=== PATIENT | female | born 1985 | race Hispanic/Latino ===

== ENCOUNTER 2022-05-31 01:48 | Emergency (ER) | payer MEDICAID ==
[~2022-05-31] VITALS: Ht 162.6 cm; Wt 145.1 kg
[2022-05-31 02:30] LABS: APPEARANCE,URINE TURBID (CLEAR); BILIRUBIN,URINE NEGATIVE (NEGATIVE); COLOR,URINE YELLOW (YELLOW); GLUCOSE, URINE (UA) NEGATIVE (NEGATIVE); KETONES,URINE NEGATIVE (NEGATIVE); LEUKOCYTE ESTERASE ,URINE 500 Leu/uL (NEGATIVE); NITRATE,URINE 2+ (NEGATIVE); OCCULT BLOOD,URINE SMALL (NEGATIVE); PROTEIN,URINE 70 mg/dL (NEGATIVE); UROBILINOGEN,URINE 0.2 mg/dL (0.2-1.0)
[2022-05-31] MEDS ORDERED: 0.9%NACL 1000ML 1,000 ML IV SCH (02:30)
[2022-05-31] MEDS ORDERED: IBUPROFEN 600 MG TABLET PO ONE (02:30)
[2022-05-31] MEDS ORDERED: ACETAMINOPHEN 500 MG TABLET PO ONE (02:30)
[2022-05-31 02:31] LABS: HCG,QUALITATIVE URINE NEGATIVE (NEGATIVE)
[2022-05-31 02:34] LABS: BACTERIA,URINE FEW /HPF (None Seen); MUCUS,URINE RARE LPF (None Seen); SQUAMOUS EPITHELIAL CELL,UR FEW /HPF (0-2); WBC,URINE TNTC /HPF (0-1)
[2022-05-31 02:37] LABS: BASOPHILS % (AUTO) 0.3 % (0.0-5.0); EOSINOPHILS % (AUTO) 0.8 % (0.0-8.0); HEMATOCRIT 35.2 % (36-48); MEAN CORPUSCULAR HEMOGLOBIN 24.2 pg (27.0-33.0); MEAN CORPUSCULAR HGB CONC 31.8 g/dL (32.0-36.0); MONOCYTES % (AUTO) 0.7 % (3.0-13.0); NEUTROPHILS % (AUTO) 78.7 % (40.0-77.0); PLATELET COUNT (AUTO) 344 K/uL (130-400); RED BLOOD CELL COUNT(AUTO) 4.63 MIL/uL (4.00-5.50); RED CELL DISTRIBUTION WIDTH 15.5 % (11.0-15.5); WHITE BLOOD COUNT (AUTO) 12.5 K/uL (4.8-10.8)
[2022-05-31 02:45] LABS: CREATININE 0.9 mg/dL (0.5-1.5); POTASSIUM 3.8 mmol/L (3.5-5.1)
[2022-05-31] MEDS ORDERED: CEFTRIAXONE 1G VIAL ONE (03:29)
[2022-05-31] MEDS ORDERED: CEFTRIAXONE 1G VIAL IVP ONE (03:30)
[2022-05-31 04:28] VITALS: BP 122/58
[2022-05-31] MEDS ORDERED: PHENAZOPYRIDINE HCL 200 MG TABLET PO STA (04:37)
[2022-05-31] MEDS ORDERED: CEPH500B PO (04:44)
[2022-05-31] MEDS ORDERED: PHEN-847 PO (04:44)
== END 2022-05-31 04:59 | disposition home or self-care (01) ==
LOC: EDH 01:48
DX: N39.0 Urinary tract infection, site not specified (principal); I10 Essential (primary) hypertension; E11.9 Type 2 diabetes mellitus without complications; Z20.822 Contact with and (suspected) exposure to COVID-19
CPT/HCPCS: 99283; 96374; 96361; 87635; 80053; 83690; 85025; 87077; 87088; 87186; 87804 ×2; 81001; 81025; 36415; C9803; J7030; J0696

== ENCOUNTER 2023-12-22 23:42 | Emergency (ER) | payer MEDICAID, OTHER ==
[~2023-12-22] VITALS: Ht 162.6 cm; Wt 113.4 kg
[~2023-12-22 23:42] MED LIST: CEPH500B PO; PHEN-847 PO
[2023-12-22] MEDS ORDERED: IOHEXOL-350 75 ML VIAL IV ONE (23:43)
[2023-12-23 00:15] LABS: APPEARANCE,URINE CLOUDY (CLEAR); BILIRUBIN,URINE NEGATIVE (NEGATIVE); COLOR,URINE YELLOW (YELLOW); GLUCOSE, URINE (UA) NEGATIVE (NEGATIVE); KETONES,URINE NEGATIVE (NEGATIVE); LEUKOCYTE ESTERASE ,URINE 75 Leu/uL (NEGATIVE); NITRATE,URINE NEGATIVE (NEGATIVE); OCCULT BLOOD,URINE NEGATIVE (NEGATIVE); PH,URINE 5.5 (5.0-8.0); PROTEIN,URINE 20 mg/dL (NEGATIVE); UROBILINOGEN,URINE 0.2 mg/dL (0.2-1.0)
[2023-12-23 00:18] LABS: ADD UA MICROSCOPIC YES
[2023-12-23 00:26] LABS: MUCUS,URINE FEW LPF (None Seen); SQUAMOUS EPITHELIAL CELL,UR MANY /HPF (0-2)
[2023-12-23] MEDS: ondanSETRON 4MG INJ IVP ONE (00:45)
[2023-12-23] MEDS: morPHINE 2 MG SYG IVP ONE (00:45)
[2023-12-23 00:46] LABS: BASOPHILS # (AUTO) 0.03 K/uL (0.00-0.20); BASOPHILS % (AUTO) 0.3 % (0.0-5.0); EOSINOPHILS # (AUTO) 0.16 K/uL (0.00-0.70); EOSINOPHILS % (AUTO) 1.7 % (0.0-8.0); HEMATOCRIT 39.5 % (36-48); IMMATURE GRANULOCYTE ABSOLUTE 0.03 K/uL (0-1); LYMPHOCYTES # (AUTO) 3.4 K/uL (1.0-4.8); LYMPHOCYTES % (AUTO) 36.6 % (21.0-51.0); MEAN CORPUSCULAR HEMOGLOBIN 26.1 pg (27.0-33.0); MEAN CORPUSCULAR HGB CONC 31.9 g/dL (32.0-36.0); MONOCYTES # (AUTO) 0.6 K/uL (0.1-1.0); MONOCYTES % (AUTO) 6.3 % (3.0-13.0); NEUTROPHILS # (AUTO) 5.1 K/uL (1.8-7.7); NEUTROPHILS % (AUTO) 54.8 % (40.0-77.0); PLATELET COUNT (AUTO) 299 K/uL (130-400); RED BLOOD CELL COUNT(AUTO) 4.82 MIL/uL (4.00-5.50); RED CELL DISTRIBUTION WIDTH 13.9 % (11.0-15.5); WHITE BLOOD COUNT (AUTO) 9.3 K/uL (4.8-10.8)
[2023-12-23] MEDS: 0.9%NACL 1000ML 1,000 ML IV ONE (00:46)
--- NOTE | 2023-12-23 00:53 | ERN ---
ED Note History of Present Illness Stated Complaint: C/O LOWER ABD PAIN WITH PAIN AND BURNING WHEN VOID Chief Complaint: Painful Urination Time Seen by MD: 00:08 Dictation: PATIENT IS A 38-YEAR-OLD FEMALE COMING IN TODAY WITH MODERATE TO SEVERE LOWER ABDOMINAL PAIN WITH BURNING SENSATION WHEN SHE VOIDS FOR THE LAST 6-7 DAYS. NO FEVER NO CHILLS. SHE STATES SHE CALLED HER DOCTOR LAST WEEK AND TOLD HER SHE THOUGHT SHE HAD A URINARY TRACT INFECTION AND WAS PRESCRIBED NITROFURANTOIN, TOOK THE LAST DOSE YESTERDAY AND NO CHANGE IN PAIN. PATIENT NOTED TO BE UNABLE TO WALK UPRIGHT DUE TO SEVERE ABDOMINAL PAIN. NEGATIVE CVAT BILATERALLY. Allergies: Coded Allergies: No Known Drug Allergies (Unverified Allergy, Unknown, 05/31/22) Home Meds Active Scripts Acetaminophen with Codeine (Acetaminophen-Cod #3 Tablet) 300 Mg-30 Mg Tablet, 1 TAB PO Q4H PRN for MODERATE TO SEVERE PAIN, #15 TAB 0 Refills Prov:REBECCA TONY NP 12/23/23 Metoclopramide HCl (Reglan 10 mg Tab) 10 Mg Tablet, 10 MG PO ACHS for NAUSEA VOMITING, #60 TAB Prov:REBECCA TONY NP 12/23/23 Phenazopyridine HCl (Pyridium) 200 Mg Tab, 200 MG PO TIDPC for 3 Days, #9 TAB TAKE WITH FOOD TO PREVENT STOMACH UPSET. Prov:MATTY UNGER MD 05/31/22 Cephalexin Monohydrate (Keflex) 500 Mg Cap, 500 MG PO QID for 10 Days, #40 CAP Prov:MATTY UNGER MD 05/31/22 Past Medical History Past Medical History: No Pertinent History Surgical History: Unknown History: Not Applicable RN Note Reviewed/Agreed w/PFSH: Yes Review of System Dictation CONSTITUTIONAL: NEGATIVE EXCEPT FOR HPI HEAD/FACE: NEGATIVE EXCEPT FOR HPI EENT: NEGATIVE EXCEPT FOR HPI RESPIRATORY: NEGATIVE EXCEPT FOR HPI GASTROINTESTINAL/ABDOMINAL: NEGATIVE EXCEPT FOR HPI MODERATE TO SEVERE LOWER ABDOMINAL PAIN GENITOURINARY: NEGATIVE EXCEPT FOR HPI MUSCULOSKELETAL: NEGATIVE EXCEPT FOR HPI INTEGUMENTARY: NEGATIVE EXCEPT FOR HPI NEUROLOGICAL/PSYCH: NEGATIVE EXCEPT FOR HPI HEMATOLOGIC/LYMPHATIC: NEGATIVE EXCEPT FOR HPI ALL SYSTEMS NEGATIVE, EXCEPT NOTED ABOVE. 13 POINT REVIEW OF SYSTEMS ASSESSED AND ALL NEGATIVE EXCEPT FOR ABOVE. Initial Vital Sign VS Vital Signs Date Time Temp Pulse Resp B/P (MAP) Pulse Ox O2 Delivery O2 Flow Rate FiO2 10/24/24 23:45 97.9 84 16 153/91 97 Room Air 12/23/23 02:37 0 21 Physical Exam Dictation VITAL SIGNS REVIEWED GENERAL APPEARANCE: ALERT, ORIENTED X 3, N SEVERE ACUTE DISTRESS, WELL DEVELOPED, NOURISHED. OBESE HEAD AND FACE: NON-TRAUMATIC. EYES: PERRL, PINK CONJUNCTIVAS, EYELID NO TRAUMA, ANTERIOR CHAMBER WITH ARCUS SENILIS. EARS: PINNAS INTACT AND NO SIGNS OF TRAUMA OR ERYTHEMA EAR CANALS CLEAR AND NO DISCHARGE TM NO ERYTHEMA NOSE: NO DISCHARGE, NO BLEEDING. OROPHARYNX: MOUTH NORMAL, TONGUE PINK, PHARYNX CLEAR,NO ERYTHEMA, TONSILS NO EXUDATES, NO ABSCESSES NOTED, MUCOUS MEMBRANE MOIST NECK: SUPPLE, NON-TENDER, NO THYROMEGALY, NO MASSES, NO JVD, NO BRUITS BREAST:DEFERRED CHEST:NO TENDERNESS, NO CREPITUS, NO PARADOXICAL MOVEMENT, NO RETRACTIONS LUNGS:CLEAR, WELL-VENTILATED, SYMMETRIC, NO RALES, NO WHEEZING, NO RHONCHI, NO STRIDOR, GOOD BREATH SOUNDS BILATERALLY HEART: REGULAR RATE, REGULAR RHYTHM, NO MURMUR, NO GALLOPS VASCULAR: NO PERIPHERAL EDEMA, ABDOMEN: SOFT, POSITIVE BOWEL SOUNDS, NONDISTENDED, NO GUARDING, MODERATE DIFFUSE LOWER ABDOMINAL TENDERNESS BOTH QUADRANTS. NEGATIVE CVAT BILATERALLY RECTAL: DEFERRED GENITAL: DEFERRED NEUROLOGICAL: NORMAL SPEECH, MOTOR FUNCTION INTACT, SENSORY FUNCTION INTACT MUSCULOSKELETAL: NECK NONTENDER, FULL RANGE OF MOTION, BACK NONTENDER, FULL RANGE OF MOTION, EXTREMITIES: NONTENDER, FULL RANGE OF MOTION SKIN: COLOR PINK, DRY, NO TURGOR, NO RASH, NO LACERATIONS, NO ABRASIONS, NO CONTUSIONS. LYMPHATIC: DEFERRED Results (Laboratory/Radiology) Laboratory/Radiology Laboratory Tests Test 12/22/23 23:49 12/23/23 00:39 Urine Color YELLOW (YELLOW) Urine Appearance CLOUDY (CLEAR) H Urine pH 5.5 (5.0-8.0) Urine Specific [place] 1.032 (1.001-1.031) Urine Protein 20 mg/dL (NEGATIVE) H Urine Glucose (UA) NEGATIVE mg/dL (NEGATIVE) Urine Ketones NEGATIVE mg/dL (NEGATIVE) Urine Occult Blood NEGATIVE (NEGATIVE) Urine Nitrate NEGATIVE (NEGATIVE) Urine Bilirubin NEGATIVE mg/dL (NEGATIVE) Urine Urobilinogen 0.2 mg/dL (0.2-1.0) Urine Leukocyte Esterase 75 Melissa/uL (NEGATIVE) H Urine RBC 2-5 /HPF (0-1) H Urine WBC 2-5 /HPF (0-1) H Urine Squamous Epithelial Cells MANY /HPF (0-2) Urine Bacteria None /HPF (None Seen) White Blood Count 9.3 K/uL (4.8-10.8) Red Blood Count 4.82 MIL/uL (4.00-5.50) Hemoglobin 12.6 g/dL (12.0-16.0) Hematocrit 39.5 % (36-48) Mean Corpuscular Volume 82.0 fL (79-99) Mean Corpuscular Hemoglobin 26.1 pg (27.0-33.0) L Mean Corpuscular Hemoglobin Concent 31.9 g/dL (32.0-36.0) L Red Cell Distribution Width 13.9 % (11.0-15.5) Platelet Count 299 K/uL (130-400) Mean Platelet Volume 9.8 fL (7.5-10.5) Immature Granulocyte % (Auto) 0.3 % (0-1) Neutrophils (%) (Auto) 54.8 % (40.0-77.0) Lymphocytes (%) (Auto) 36.6 % (21.0-51.0) Monocytes (%) (Auto) 6.3 % (3.0-13.0) Eosinophils (%) (Auto) 1.7 % (0.0-8.0) Basophils (%) (Auto) 0.3 % (0.0-5.0) Neutrophils # (Auto) 5.1 K/uL (1.8-7.7) Lymphocytes # (Auto) 3.4 K/uL (1.0-4.8) Monocytes # (Auto) 0.6 K/uL (0.1-1.0) Eosinophils # (Auto) 0.16 K/uL (0.00-0.70) Basophils # (Auto) 0.03 K/uL (0.00-0.20) Absolute Immature Granulocyte (auto 0.03 K/uL (0-1) Nucleated Red Blood Cells 0.0 % (0.0-0.19) Sodium Level 138 mmol/L (136-145) Potassium Level 3.9 mmol/L (3.5-5.1) Chloride Level 102 mmol/L (101-111) Carbon Dioxide Level 31 mmol/L (21-32) Blood Urea Nitrogen 17 mg/dL (7-18) Creatinine 0.7 mg/dL (0.5-1.0) Glomerular Filtration Rate Calc 114 mL/min (>90) Random Glucose 106 mg/dL (70-105) H Total Calcium 9.0 mg/dL (8.5-10.1) Serum Test, Qualitative NEGATIVE (NEGATIVE) REASON: LEFT FLANK PAIN RADIATING TO LEFT UPPER QUADRANT ORD CT ABDOMEN/PELVIS W/CONTRAST HISTORY: Abdominal pain COMPARISON: None TECHNIQUE: Multiple sequential axial images of the abdomen and pelvis were obtained from the dome of the diaphragm through symphysis pubis. Patient was given 75 cc of Omnipaque through intravenous route. Oral contrast was not given. FINDINGS: No pleural effusion is seen bilaterally. There is no evidence of parenchymal disease or pulmonary nodule of the visualized lower lungs. Degenerative changes of the thoracolumbar spine are present. The heart is not enlarged. Liver is enlarged measuring 20 cm. Gallbladder is distended. Post gastric bypass surgical changes are seen. Mild small bowel dilatation is seen with fluid-filled may be related to enteritis with early bowel obstruction not excluded. The liver, spleen, adrenal glands and pancreas are unremarkable. There is no evidence of hydronephrosis bilaterally. No evidence of renal stone is seen. Fecal material is seen in the colon. There are normal size retroperitoneal and mesenteric lymph nodes. No ascites is seen. Appendix is not seen. Pelvic sidewalls are symmetric bilaterally. Bladder is poorly distended. IMPRESSION: 1. Distended gallbladder. Mild small bowel dilatation with fluid-filled small bowel loops may be related to enteritis with early bowel obstruction not excluded. Labs Reviewed?: Yes ED Course ED Course Orders Procedure Category Date Status Time Urinalysis Profile LAB 12/22/23 Complete 23:49 Culture Urine HOSEA 12/23/23 In Process 00:18 Cbc With Differential LAB 12/23/23 Complete 00:35 Ct Abdomen/Pelvis CT 12/23/23 Resulted W/Contrast 00:35 0.9%Nacl 1000ml (Ns PHA 12/23/23 Complete 1000ml) 01:00 Morphine 2mg Syg PHA 12/23/23 Complete (Morphine 2mg Syg) 01:00 Ondansetron 4mg Inj PHA 12/23/23 Complete (Zofran 4mg Inj) 01:00 Basic Metabolic Panel LAB 12/23/23 Complete 00:35 Testing, LAB 12/23/23 Complete Serum Hcg 01:08 Current Medications Medications (Trade) Dose Ordered Sig/Cherie Route PRN Reason Start Time Stop Time Status Last Admin Dose Admin Morphine Sulfate (morPHINE 2MG SYG) 2 mg ONCE ONCE IVP 12/23/23 01:00 12/23/23 01:01 DC 12/23/23 00:45 Ondansetron HCl (zoFRAN 4MG INJ) 4 mg ONCE ONCE IVP 12/23/23 01:00 12/23/23 01:01 DC 12/23/23 00:45 Sodium Chloride 1,000 ml @ 0 mls/hr ONCE ONCE IV 12/23/23 01:00 12/23/23 01:01 DC 12/23/23 00:46 Vital Signs Date Time Temp Pulse Resp B/P (MAP) Pulse Ox O2 Delivery O2 Flow Rate FiO2 12/23/23 02:37 98.1 82 18 145/86 98 Room Air* 0 21 12/22/23 23:45 97.9 84 16 153/91 97 Room Air 0232, PATIENT STATES SHE FEELS MARKEDLY IMPROVED AFTER FLUIDS AND TREATMENT. WISHES TO GO HOME WE WILL BE DISCHARGED HOME WITH PAIN MEDS AND REGLAN FOR MOTILITY, SHE AGREES SHE WILL FOLLOW UP WITH IN 1-2 DAYS. SHE STATES SHE IS STATUS POST A GASTRIC BYPASS ONE YEAR AGO Medical Decision Making MDM MDM: DIFFERENTIAL DIAGNOSIS: GASTRITIS VERSUS GASTROENTERITIS/UTI/PYELONEPHRITIS/NEPHROLITHIASIS/DEHYDRATION/LATE OR LYING IMBALANCE/ RATIONALE: TESTS CONSIDERED AND ORDERED SECONDARY TO SHARED DECISION MAKING INCLUDE: RADIOLOGY/LABS PREVIOUS OUTSIDE RECORDS REVIEWED: OLD ER VISITS. REVIEWED RISK OF COMPLICATION AND/OR MORBIDITY OR MORTALITY OF PATIENT MANAGEMENT: NONE MEDICATIONS-PER MEDICATION RECONCILIATION NEED FOR HOSPITALIZATION: PATIENT DOES NOT MEET CRITERIA FOR HOSPITALIZATION. NO NEED FOR EMERGENCY MAJOR/MINOR SURGERY: NO THERE ARE NO SOCIAL CONCERNS WITH THIS PATIENT. PRESCRIPTION DRUG MANAGEMENT REGLAN/TYLENOL NO. 3 PRESCRIPTIONS WILL INCLUDE SYMPTOMATIC CARE PATIENT'S PRIOR EXTERNAL MEDICAL RECORDS FROM OTHER ER VISITS WERE REVIEWED BY ME INDICATED. PRIOR TESTING AND RESULTS FROM PREVIOUS VISITS WERE REVIEWED. PRIOR TESTS WERE TAKEN INTO ACCOUNT WITH MEDICAL DECISION MAKING AND RESOURCE UTILIZATION, INDEPENDENT HISTORIAN/HISTORIANS WERE USED TO OBTAIN COMPLETE MEDICAL HISTORY. I INDEPENDENTLY INTERPRETED THE TEST THAT WERE PERFORMED, RESULTS WERE REVIEWED BY ME AND CONSIDERED FINDINGS ON RADIOLOGY IF ORDERED. MEDICAL MANAGEMENT AND EXAMINATION INTERPRETATION DISCUSSIONS WERE HAD BY ME WITH OTHER QUALIFIED HEALTHCARE PROFESSIONALS INDICATED FOR THE PATIENT'S CARE. DX & DISP Disposition: Discharge Departure Impression: Primary Impression: Nausea & vomiting Additional Impressions: Low back pain, Status post gastric bypass for obesity Condition: Stable Scripts Acetaminophen with Codeine (Acetaminophen-Cod #3 Tablet) 300 Mg-30 Mg Tablet 1 TAB PO Q4H PRN for MODERATE TO SEVERE PAIN, #15 TAB 0 Refills Prov: REBECCA TONY NP 12/23/23 Metoclopramide HCl (Reglan 10 mg Tab) 10 Mg Tablet 10 MG PO ACHS for NAUSEA VOMITING, #60 TAB Prov: REBECCA TONY NP 12/23/23 Additional Instructions: Follow-up with primary care provider in 1 to 2 days. Take medications as directed here in the emergency room. Okay to continue home medications unless otherwise discussed during your visit in the emergency room today. Return to your nearest emergency room if symptoms worsen or if there is no improvement. Call 911 if you need immediate assistance. Take Tylenol or Motrin [id number] as needed and if no contraindications are present. Increase oral hydration. A wound culture or urine culture was ordered here in the emergency room department please follow-up with primary care provider and advise them to get repeat ports from our facility. If you had any Matthew wrap/splints that were applied here, please do not remove them until you see your primary care or specialty. Follow your gastric bypass diet. Take Reglan 30 minutes before meals and at bedtime. Follow up with the your gastric bypass surgeon in next 1-2 days. Referrals: MILAN LEWIS MD (PCP) Time of Disposition: 02:34 I have reviewed the case, and I agree with, Diagnosis and Plan REBECCA TONY NP Dec 23, 2023 00:53 NIKA HASKINS DO Dec 23, 2023 04:38
[2023-12-23 00:58] LABS: CREATININE 0.7 mg/dL (0.5-1.0); POTASSIUM 3.9 mmol/L (3.5-5.1)
--- NOTE | 2023-12-23 02:08 | HMCIMG ---
CT ABDOMEN/PELVIS W/CONTRAST HISTORY: Abdominal pain COMPARISON: None TECHNIQUE: Multiple sequential axial images of the abdomen and pelvis were obtained from the dome of the diaphragm through symphysis pubis. Patient was given 75 cc of Omnipaque through intravenous route. Oral contrast was not given. FINDINGS: No pleural effusion is seen bilaterally. There is no evidence of parenchymal disease or pulmonary nodule of the visualized lower lungs. Degenerative changes of the thoracolumbar spine are present. The heart is not enlarged. Liver is enlarged measuring 20 cm. Gallbladder is distended. Post gastric bypass surgical changes are seen. Mild small bowel dilatation is seen with fluid-filled may be related to enteritis with early bowel obstruction not excluded. The liver, spleen, adrenal glands and pancreas are unremarkable. There is no evidence of hydronephrosis bilaterally. No evidence of renal stone is seen. Fecal material is seen in the colon. There are normal size retroperitoneal and mesenteric lymph nodes. No ascites is seen. Appendix is not seen. Pelvic sidewalls are symmetric bilaterally. Bladder is poorly distended. IMPRESSION: 1. Distended gallbladder. Mild small bowel dilatation with fluid-filled small bowel loops may be related to enteritis with early bowel obstruction not excluded. CT was performed with one or more following dose reduction techniques: automated exposure control, adjustment of the mA and kv according to patient's size, or use of a iterative reconstruction technique.
[2023-12-23] MEDS ORDERED: METO10TA41 PO (02:35)
[2023-12-23] MEDS ORDERED: ACET-2079 PO (02:35)
[2023-12-23 02:37] VITALS: BP 145/86; PULSE 82; RESP 18; TEMP 98; O2SAT 98
== END 2023-12-23 02:39 | disposition home or self-care (01) ==
LOC: EDH 23:42
DX: R11.2 Nausea with vomiting, unspecified (principal); M54.50 Low back pain, unspecified; E66.9 Obesity, unspecified; Z98.84 Bariatric surgery status
CPT/HCPCS: 99285; 80048; 84703; 85025; 87086; 81001; 36415; 74177; 96374; 96375; J2270; J7030; J2405; Q9967